=== PATIENT | male | born 1985 | race Caucasian/White ===

== ENCOUNTER 2016-08-21 14:55 | Emergency (ER) | payer OTHER ==
[2016-08-21] MEDS ORDERED: NORCO, ANEXSIA 5/325MG TABLET (HYDROcodone/ACETAMINOPHEN) As Ordered ONE (17:00)
[2016-08-21] MEDS ORDERED: ONDANSETRON 4 MG ORAL DISINTEGRATING TAB (S0181) As Ordered ONE (17:00)
[2016-08-21] MEDS ORDERED: IBUPROFEN 600 MG TAB As Ordered ONE (17:04)
--- NOTE | 2016-08-21 17:26 | REP ---
CT Head without contrast HISTORY: Head injury COMPARISON: None There is no intraparenchymal hemorrhage, acute infarct, mass or midline shift. The ventricular system is normal in appearance. There is no extra cerebral collection. There is no fracture. The visualized sinuses are clear. IMPRESSION: There is no intracranial lesion. Signed by Jose Arellano MD 08/21/2016 05:18 P
--- NOTE | 2016-08-21 18:50 | EDDOCDS ---
Nurse's Notes [facility] Name: Vitor Melendrez Age: 31 yrs Sex: Male : 1985 Arrival Date: 08/21/2016 Time: 14:55 Bed TR8 Private MD: Anuel Contreras Diagnosis: Contusion of other part of head-LEFT MANDIBLE Presentation: 08/21 15:17 Presenting complaint: Patient states: he was working on his truck last night and the kcs wrench slipped and he hit himself in the jaw so hard he passed out - since the pain is getting worse - very sore to touch. Adult Sepsis Screening: The patient does not have new or worsening altered mentation. Patient's respiratory rate is less than 22. Systolic blood pressure is greater than 100. Patient has a qSOFA score of 0- Negative Sepsis Screen. Suicide/Homicide risk assessment- the patient denies having any suicidal and/or homicidal ideations and does not present with any other emotional, behavioral or mental health complaints. 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 Transition of care: patient was not received from another setting of care. 15:17 Acuity: ABDIRAHMAN Level 4 kcs 15:17 Method Of Arrival: Walkin/Carried/Asstd kcs Triage Assessment: 15:19 General: Appears comfortable, well developed, well nourished, Behavior is cooperative, kcs pleasant. Pain: Location: left jaw Pain currently is 7 out of 10 on a pain scale. HIV screening NA for this visit Offered previously. Neurological: Level of Consciousness is awake, alert. Respiratory: Airway is patent Respiratory effort is even, unlabored, Respiratory pattern is regular, symmetrical. Derm: Skin is intact, is healthy with good turgor, Skin is dry, Skin is normal. Historical: - Allergies: No known drug Allergies; - Home Meds: 1. none - PMHx: Asthma; - PSHx: Gastric Bypass; Ankle Arthroscopy- Left; Cholecystectomy; oral surgery; - Social history: Smoking status: Patient states former smoker of tobacco. No barriers to communication noted, The patient speaks fluent Setswana. - Family history: No immediate family members are acutely ill. - : The pt / caregiver states he / she is not on anticoagulants. Home medication list is obtained from the patient, [employer] import data. - Exposure Risk Screening:: None identified. Screenin:48 Screening information is obtained from the patient. Fall risk: No risks identified. mb9 Assistance ADL's: requires no assistance with activities of daily living. Abuse/DV Screen: The patient / caregiver reports he/she is: not in a situation that causes fear, pain or injury. Nutritional screening: No deficits noted. Advance Directives: There is no active DNR order. home support is adequate. Assessment: 18:48 General: Appears in no apparent distress, Behavior is appropriate for age, cooperative. mb9 Pain:. Respiratory: Airway is patent Respiratory effort is even, unlabored. Vital Signs: 14:56 BP 142 / 86; Pulse 76; Resp 18 S; Temp 98.5(O); Pulse Ox 97% on R/A; Weight 113.4 kg gr2 (R); Height 6 ft. 0 in. (182.88 cm) (R); Pain 8/10; 18:42 BP 136 / 92; Pulse 63; Resp 18; Temp 99.4(TE); Pulse Ox 99% on R/A; Pain 6/10; ar3 14:56 Body Mass Index 33.91 (113.40 kg, 182.88 cm) gr2 Vitals: 14:56 Log In Time: August 21, 2016 at 14:56. gr2 ED Course: 14:56 Patient visited by Munira Mac. gr2 14:56 Anuel Contreras is Private Physician. gr2 14:56 Patient moved to Waiting gr2 14:58 Patient visited by Munira Mac. gr2 14:58 Patient moved to Pre RCE gr2 15:18 Triage Initiated kcs 16:40 Patient moved to Triage 3 mb9 16:41 Lucio Marshall [facility]-C [facility]. ck7 16:41 Amari Rios DO is Attending Physician. ck7 16:41 Patient visited by Lucio Marshall RPA-C. ck7 17:06 Patient moved to TR3 ar3 17:35 Patient visited by Lucio Marshall RPA-C. ck7 18:10 CT Head Without Contrast Returned. EDMS 18:13 Patient visited by Lucio Marshall RPA-C. ck7 18:13 Anuel Contreras is Referral Physician. ck7 18:28 Patient moved to [facility] 18:43 Patient visited by Rebecca Nieves PCA. ar3 18:47 Patient moved to TR8 mb9 18:48 The patient / caregiver is instructed regarding the plan of care and ED course. mb9 18:48 No IV's were initiated during this patient's visit. No procedures done that require mb9 assistance. Administered Medications: 17:16 Not Given (pt driving home): HYDROcodone-acetaminophen 5 mg-325 mg 1 tabs PO once mb9 17:16 Drug: Ondansetron ODT 4 mg [ondansetron 4 mg disintegrating tablet (1 tabs)] Route: PO; mb9 17:16 Drug: Ibuprofen 600 mg [ibuprofen 600 mg tablet (1 tabs)] Route: PO; mb9 Order Results: Radiology Order: CT Head Without Contrast Test: CT Head Without Contrast REASON FOR EXAMINATION: head injury, loc, r/o bleed; CT Head without contrast; ; HISTORY: Head injury; ; COMPARISON: None; ; There is no intraparenchymal hemorrhage, acute infarct, mass or midline shift.; The ventricular system is normal in appearance. There is no extra cerebral; collection. There is no fracture. The visualized sinuses are clear.; ; IMPRESSION: There is no intracranial lesion.; ; ; ; ; Signed by; Jose Arellano MD 08/21/2016 05:18 P; Outcome: 18:13 Discharge ordered by Provider. ck7 18:48 Discharge Assessment: Patient awake, alert and oriented x 3. No cognitive and/or mb9 functional deficits noted. Patient verbalized understanding of disposition instructions. patient administered narcotics - no. The following High Risk Discharge criteria are identified: None. Discharged to home ambulatory. Condition: good Condition: stable Condition: improved. Discharge instructions given to patient, Demonstrated understanding of instructions, medications, Pt was receptive of discharge instructions/ teaching. No special radiology studies were completed. Property :Personal belongings accompany Pt. 18:49 Patient left the ED. mb9 Signatures: Dispatcher [employer] EDMS Sera Quinn, Chan Samano RN, RN RN Rebecca Linares PCA COMMERCIAL PAINTER ar3 Lucio Marshall, KEERTHI-C RPA-Cck7 Munira Mac 2 Yoshi Alejandre RN RN mb9 MTDD
--- NOTE | 2016-08-21 18:50 | EDDOCDS ---
Physician Documentation [facility] Name: Vitor Melendrez Age: 31 yrs Sex: Male : 1985 Arrival Date: 08/21/2016 Time: 14:55 Bed TR8 Private MD: Anuel Contreras Disposition: 08/21/16 18:13 Discharged to Home/Self Care. Impression: Contusion of other part of head - LEFT MANDIBLE. - Condition is Stable. - Discharge Instructions: Contusion. - Prescriptions for Ibuprofen 600 mg Oral Tablet - take 1 tablet by ORAL route every 6 hours As needed take with food; 30 tablet. [place] 5- 325 mg Oral Tablet - take 1 tablet by ORAL route every 6 hours As needed MDD: 4 tabs; 6 tablet. ZOFRAN ODT 4 mg - dissolve 1 tablet by ORAL route 4 times per day As needed do not chew, do not swallow whole; 10 tablet. - Medication Reconciliation, Local Pharmacy Hours form. - Follow up: Anuel Contreras; When: 2 - 3 days; Reason: Recheck today's complaints, Continuance of care. - Problem is new. - Symptoms have improved. Historical: - Allergies: No known drug Allergies; - Home Meds: 1. none - PMHx: Asthma; - PSHx: Gastric Bypass; Ankle Arthroscopy- Left; Cholecystectomy; oral surgery; - Social history: Smoking status: Patient states former smoker of tobacco. No barriers to communication noted, The patient speaks fluent Slovak. - Family history: No immediate family members are acutely ill. - : The pt / caregiver states he / she is not on anticoagulants. Home medication list is obtained from the patient, [employer] import data. - Exposure Risk Screening:: None identified. Vital Signs: 08/21 14:56 BP 142 / 86; Pulse 76; Resp 18 S; Temp 98.5(O); Pulse Ox 97% on R/A; Weight 113.4 kg / gr2 250 lbs (R); Height 6 ft. 0 in. (182.88 cm) (R); Pain 8/10; 18:42 BP 136 / 92; Pulse 63; Resp 18; Temp 99.4(TE); Pulse Ox 99% on R/A; Pain 6/10; ar3 14:56 Body Mass Index 33.91 (113.40 kg, 182.88 cm) gr2 MDM: 16:58 HYDROcodone-acetaminophen 5 mg-325 mg 1 tabs PO once ordered. ck7 16:58 Ondansetron ODT Oral Disintegrating Tablet 4 mg PO once ordered. ck7 16:58 CT Head Without Contrast Ordered. EDMS 16:58 CT Maxilofacial W/out Contrast Ordered. EDMS 17:02 Ibuprofen 600 mg PO once ordered. ck7 18:48 Financial registration complete. gjb Administered Medications: 17:16 Not Given (pt driving home): HYDROcodone-acetaminophen 5 mg-325 mg 1 tabs PO once mb9 17:16 Drug: Ondansetron ODT 4 mg [ondansetron 4 mg disintegrating tablet (1 tabs)] Route: PO; mb9 17:16 Drug: Ibuprofen 600 mg [ibuprofen 600 mg tablet (1 tabs)] Route: PO; mb9 Signatures: Dispatcher [employer] Sera De Jesus RN RN kcs Lucio Marshall, RPA-C RPA-Cck7 Yoshi Alejandre RN RN mb9 Syl Bonilla MTDD
--- NOTE | 2016-08-21 20:54 | REP ---
MAXILLOFACIAL CT WITHOUT CONTRAST: HISTORY: Trauma. Minimal mucosal thickening is present in the right maxillary sinus. The remaining sinuses are clear. The ostiomeatal units are patent. The middle and inferior nasal turbinates are partially paradoxical. There is very minimal deviation of the nasal septum to the right. The cribriform plate, medial taylor of the orbits and optic canals are intact. The carotid canals form a segment of the posterolateral taylor of the sphenoid sinus. Periapical lucency is present involving the first and second premolar teeth of the right mandible. There is disruption of the overlying buccal cortex. This represents periodontal disease. There is no fracture. IMPRESSION: Minimal right maxillary sinus mucosal thickening. Signed by Jose Arellano MD 08/22/2016 08:18 A
--- NOTE | 2016-08-23 19:50 | EDDOCDS ---
Nurse's Notes [facility] Name: Vitor Melendrez Age: 31 yrs Sex: Male : 1985 Arrival Date: 08/21/2016 Time: 14:55 Bed TR8 Private MD: Anuel Contreras Diagnosis: Contusion of other part of head-LEFT MANDIBLE Presentation: 08/21 15:17 Presenting complaint: Patient states: he was working on his truck last night and the kcs wrench slipped and he hit himself in the jaw so hard he passed out - since the pain is getting worse - very sore to touch. Adult Sepsis Screening: The patient does not have new or worsening altered mentation. Patient's respiratory rate is less than 22. Systolic blood pressure is greater than 100. Patient has a qSOFA score of 0- Negative Sepsis Screen. Suicide/Homicide risk assessment- the patient denies having any suicidal and/or homicidal ideations and does not present with any other emotional, behavioral or mental health complaints. Status: Patient is not a web services architect or dependent. Transition of care: patient was not received from another setting of care. 15:17 Acuity: ABDIRAHMAN Level 4 kcs 15:17 Method Of Arrival: Walkin/Carried/Asstd kcs Triage Assessment: 15:19 General: Appears comfortable, well developed, well nourished, Behavior is cooperative, kcs pleasant. Pain: Location: left jaw Pain currently is 7 out of 10 on a pain scale. HIV screening NA for this visit Offered previously. Neurological: Level of Consciousness is awake, alert. Respiratory: Airway is patent Respiratory effort is even, unlabored, Respiratory pattern is regular, symmetrical. Derm: Skin is intact, is healthy with good turgor, Skin is dry, Skin is normal. Historical: - Allergies: No known drug Allergies; - Home Meds: 1. none - PMHx: Asthma; - PSHx: Gastric Bypass; Ankle Arthroscopy- Left; Cholecystectomy; oral surgery; - Social history: Smoking status: Patient states former smoker of tobacco. No barriers to communication noted, The patient speaks fluent Turkmen. - Family history: No immediate family members are acutely ill. - : The pt / caregiver states he / she is not on anticoagulants. Home medication list is obtained from the patient, [employer] import data. - Exposure Risk Screening:: None identified. Screenin:48 Screening information is obtained from the patient. Fall risk: No risks identified. mb9 Assistance ADL's: requires no assistance with activities of daily living. Abuse/DV Screen: The patient / caregiver reports he/she is: not in a situation that causes fear, pain or injury. Nutritional screening: No deficits noted. Advance Directives: There is no active DNR order. home support is adequate. Assessment: 18:48 General: Appears in no apparent distress, Behavior is appropriate for age, cooperative. mb9 Pain:. Respiratory: Airway is patent Respiratory effort is even, unlabored. Vital Signs: 14:56 BP 142 / 86; Pulse 76; Resp 18 S; Temp 98.5(O); Pulse Ox 97% on R/A; Weight 113.4 kg gr2 (R); Height 6 ft. 0 in. (182.88 cm) (R); Pain 8/10; 18:42 BP 136 / 92; Pulse 63; Resp 18; Temp 99.4(TE); Pulse Ox 99% on R/A; Pain 6/10; ar3 14:56 Body Mass Index 33.91 (113.40 kg, 182.88 cm) gr2 Vitals: 14:56 Log In Time: August 21, 2016 at 14:56. gr2 ED Course: 14:56 Patient visited by Munira Mac. gr2 14:56 Anuel Contreras is Private Physician. gr2 14:56 Patient moved to Waiting gr2 14:58 Patient visited by Munira Mac. gr2 14:58 Patient moved to Pre RCE gr2 15:18 Triage Initiated kcs 16:40 Patient moved to Triage 3 mb9 16:41 [facility] Marshall [facility]C [facility] ck7 16:41 Amari Rios DO is Attending Physician. ck7 16:41 Patient visited by Lucio Marshall RPA-C. ck7 17:06 Patient moved to TR3 ar3 17:35 Patient visited by Lucio Marshall RPA-C. ck7 18:10 CT Head Without Contrast Returned. EDMS 18:13 Patient visited by Lucio Marshall RPA-C. ck7 18:13 Anuel Contreras is Referral Physician. ck7 18:28 Patient moved to PR2 / 26 bcj 18:43 Patient visited by Rebecca Nieves PCA. ar3 18:47 Patient moved to TR8 mb9 18:48 The patient / caregiver is instructed regarding the plan of care and ED course. mb9 18:48 No IV's were initiated during this patient's visit. No procedures done that require mb9 assistance. 20:56 [facility] [place] was scanned into [employer] and attached to record. gjb 21:33 CT Maxilofacial W/out Contrast Returned. EDMS 08/22 12:42 T-Sheet-- Draft Copy was scanned into [employer] and attached to record. gb Administered Medications: 08/21 17:16 Not Given (pt driving home): HYDROcodone-acetaminophen 5 mg-325 mg 1 tabs PO once mb9 17:16 Drug: Ondansetron ODT 4 mg [ondansetron 4 mg disintegrating tablet (1 tabs)] Route: PO; mb9 17:16 Drug: Ibuprofen 600 mg [ibuprofen 600 mg tablet (1 tabs)] Route: PO; mb9 Order Results: Radiology Order: CT Head Without Contrast Test: CT Head Without Contrast REASON FOR EXAMINATION: head injury, loc, r/o bleed; CT Head without contrast; ; HISTORY: Head injury; ; COMPARISON: None; ; There is no intraparenchymal hemorrhage, acute infarct, mass or midline shift.; The ventricular system is normal in appearance. There is no extra cerebral; collection. There is no fracture. The visualized sinuses are clear.; ; IMPRESSION: There is no intracranial lesion.; ; ; ; ; Signed by; Jose Arellano MD 08/21/2016 05:18 P; Radiology Order: CT Maxilofacial W/out Contrast Test: CT Maxilofacial W/out Contrast REASON FOR EXAMINATION: r/o maxilla and mandible fracture; MAXILLOFACIAL CT WITHOUT CONTRAST:; ; HISTORY: Trauma.; ; Minimal mucosal thickening is present in the right maxillary sinus. The remaining; sinuses are clear. The ostiomeatal units are patent. The middle and inferior; nasal turbinates are partially paradoxical. There is very minimal deviation of; the nasal septum to the right. The cribriform plate, medial taylor of the orbits; and optic canals are intact. The carotid canals form a segment of the; posterolateral taylor of the sphenoid sinus. Periapical lucency is present; involving the first and second premolar teeth of the right mandible. There is; disruption of the overlying buccal cortex. This represents periodontal disease.; There is no fracture.; ; IMPRESSION:; ; Minimal right maxillary sinus mucosal thickening.; ; ; Signed by; Jose Arellano MD 08/22/2016 08:18 A; Outcome: 18:13 Discharge ordered by Provider. ck7 18:48 Discharge Assessment: Patient awake, alert and oriented x 3. No cognitive and/or mb9 functional deficits noted. Patient verbalized understanding of disposition instructions. patient administered narcotics - no. The following High Risk Discharge criteria are identified: None. Discharged to home ambulatory. Condition: good Condition: stable Condition: improved. Discharge instructions given to patient, Demonstrated understanding of instructions, medications, Pt was receptive of discharge instructions/ teaching. No special radiology studies were completed. Property :Personal belongings accompany Pt. 18:49 Patient left the ED. mb9 Signatures: Dispatcher [employer] EDMS Sera Quinn, RN RN Chan Villa RN RN bcj Heather Bains, Reg Reg gb Rebecca Nieves, FIRE OFFICIAL FIRE OFFICIAL ar3 Lucio Marshall, RPA-C RPA-Cck7 Munira Mac gr2 Yoshi AlejandreRN RN mb9 Syl Bonilla Chart Complete MTDD
--- NOTE | 2016-08-23 19:50 | EDDOCDS ---
Physician Documentation [facility] Name: Vitor Melendrez Age: 31 yrs Sex: Male : 1985 Arrival Date: 08/21/2016 Time: 14:55 Bed TR8 Private MD: Anuel Contreras Disposition: 08/21/16 18:13 Discharged to Home/Self Care. Impression: Contusion of other part of head - LEFT MANDIBLE. - Condition is Stable. - Discharge Instructions: Contusion. - Prescriptions for Ibuprofen 600 mg Oral Tablet - take 1 tablet by ORAL route every 6 hours As needed take with food; 30 tablet. [place] 5- 325 mg Oral Tablet - take 1 tablet by ORAL route every 6 hours As needed MDD: 4 tabs; 6 tablet. ZOFRAN ODT 4 mg - dissolve 1 tablet by ORAL route 4 times per day As needed do not chew, do not swallow whole; 10 tablet. - Medication Reconciliation, Local Pharmacy Hours form. - Follow up: Anuel Contreras; When: 2 - 3 days; Reason: Recheck today's complaints, Continuance of care. - Problem is new. - Symptoms have improved. Historical: - Allergies: No known drug Allergies; - Home Meds: 1. none - PMHx: Asthma; - PSHx: Gastric Bypass; Ankle Arthroscopy- Left; Cholecystectomy; oral surgery; - Social history: Smoking status: Patient states former smoker of tobacco. No barriers to communication noted, The patient speaks fluent Portuguese. - Family history: No immediate family members are acutely ill. - : The pt / caregiver states he / she is not on anticoagulants. Home medication list is obtained from the patient, [employer] import data. - Exposure Risk Screening:: None identified. Vital Signs: 08/21 14:56 BP 142 / 86; Pulse 76; Resp 18 S; Temp 98.5(O); Pulse Ox 97% on R/A; Weight 113.4 kg / gr2 250 lbs (R); Height 6 ft. 0 in. (182.88 cm) (R); Pain 8/10; 18:42 BP 136 / 92; Pulse 63; Resp 18; Temp 99.4(TE); Pulse Ox 99% on R/A; Pain 6/10; ar3 14:56 Body Mass Index 33.91 (113.40 kg, 182.88 cm) gr2 MDM: 16:58 HYDROcodone-acetaminophen 5 mg-325 mg 1 tabs PO once ordered. ck7 16:58 Ondansetron ODT Oral Disintegrating Tablet 4 mg PO once ordered. ck7 16:58 CT Head Without Contrast Ordered. EDMS 16:58 CT Maxilofacial W/out Contrast Ordered. EDMS 17:02 Ibuprofen 600 mg PO once ordered. ck7 18:48 Financial registration complete. gjb 20:56 [facility] Payment Agreement was scanned into [employer] and attached to record. gjb 08/22 12:42 T-Sheet-- Draft Copy was scanned into [employer] and attached to record. gb Administered Medications: 08/21 17:16 Not Given (pt driving home): HYDROcodone-acetaminophen 5 mg-325 mg 1 tabs PO once mb9 17:16 Drug: Ondansetron ODT 4 mg [ondansetron 4 mg disintegrating tablet (1 tabs)] Route: PO; mb9 17:16 Drug: Ibuprofen 600 mg [ibuprofen 600 mg tablet (1 tabs)] Route: PO; mb9 Signatures: Dispatcher [employer] EDMS Sera Quinn RN RN kcs Heather Bains, Reg Reg gb Lucio Marshall, RPA-C RPA-Cck7 Yoshi Alejandre RN RN mb9 Syl Bonilla The chart was reviewed and I authenticate all verbal orders and agree with the evaluation and treatment provided.Attachments: 20:56 [facility] Payment Agreement [facility] 08/22 12:42 T-Sheet-- Draft Copy gb Chart Complete MTDD
--- NOTE | 2016-08-23 19:50 | EDDOCDS ---
Physician Documentation [facility] Name: Vitor Melendrez Age: 31 yrs Sex: Male : 1985 Arrival Date: 08/21/2016 Time: 14:55 Bed TR8 Private MD: Anuel Contreras Disposition: 08/21/16 18:13 Discharged to Home/Self Care. Impression: Contusion of other part of head - LEFT MANDIBLE. - Condition is Stable. - Discharge Instructions: Contusion. - Prescriptions for Ibuprofen 600 mg Oral Tablet - take 1 tablet by ORAL route every 6 hours As needed take with food; 30 tablet. [place] 5- 325 mg Oral Tablet - take 1 tablet by ORAL route every 6 hours As needed MDD: 4 tabs; 6 tablet. ZOFRAN ODT 4 mg - dissolve 1 tablet by ORAL route 4 times per day As needed do not chew, do not swallow whole; 10 tablet. - Medication Reconciliation, Local Pharmacy Hours form. - Follow up: Anuel Contreras; When: 2 - 3 days; Reason: Recheck today's complaints, Continuance of care. - Problem is new. - Symptoms have improved. Historical: - Allergies: No known drug Allergies; - Home Meds: 1. none - PMHx: Asthma; - PSHx: Gastric Bypass; Ankle Arthroscopy- Left; Cholecystectomy; oral surgery; - Social history: Smoking status: Patient states former smoker of tobacco. No barriers to communication noted, The patient speaks fluent Greek. - Family history: No immediate family members are acutely ill. - : The pt / caregiver states he / she is not on anticoagulants. Home medication list is obtained from the patient, [employer] import data. - Exposure Risk Screening:: None identified. Vital Signs: 08/21 14:56 BP 142 / 86; Pulse 76; Resp 18 S; Temp 98.5(O); Pulse Ox 97% on R/A; Weight 113.4 kg / gr2 250 lbs (R); Height 6 ft. 0 in. (182.88 cm) (R); Pain 8/10; 18:42 BP 136 / 92; Pulse 63; Resp 18; Temp 99.4(TE); Pulse Ox 99% on R/A; Pain 6/10; ar3 14:56 Body Mass Index 33.91 (113.40 kg, 182.88 cm) gr2 MDM: 16:58 HYDROcodone-acetaminophen 5 mg-325 mg 1 tabs PO once ordered. ck7 16:58 Ondansetron ODT Oral Disintegrating Tablet 4 mg PO once ordered. ck7 16:58 CT Head Without Contrast Ordered. EDMS 16:58 CT Maxilofacial W/out Contrast Ordered. EDMS 17:02 Ibuprofen 600 mg PO once ordered. ck7 18:48 Financial registration complete. gjb 20:56 [facility] Payment Agreement was scanned into [employer] and attached to record. gjb 08/22 12:42 T-Sheet-- Draft Copy was scanned into [employer] and attached to record. gb Administered Medications: 08/21 17:16 Not Given (pt driving home): HYDROcodone-acetaminophen 5 mg-325 mg 1 tabs PO once mb9 17:16 Drug: Ondansetron ODT 4 mg [ondansetron 4 mg disintegrating tablet (1 tabs)] Route: PO; mb9 17:16 Drug: Ibuprofen 600 mg [ibuprofen 600 mg tablet (1 tabs)] Route: PO; mb9 Signatures: Dispatcher [employer] EDMS Sera Quinn RN RN kcs Heather Bains, Reg Reg gb Lucio Marshall, RPA-C RPA-Cck7 Yoshi Alejandre RN RN mb9 Syl Bonilla The chart was reviewed and I authenticate all verbal orders and agree with the evaluation and treatment provided.Attachments: 20:56 [facility] Payment Agreement [facility] 08/22 12:42 T-Sheet-- Draft Copy gb Chart Complete MTDD
== END 2016-08-21 18:49 | disposition home or self-care (01) ==
LOC: M ED 14:55
DX: S00.83XA Contusion of other part of head, initial encounter (principal); W22.8XXA Striking against or struck by other objects, initial encounter; Y92.019 Unspecified place in single-family (private) house as the place of occurrence of the external cause; Y93.89 Activity, other specified; Y99.8 Other external cause status; J45.909 Unspecified asthma, uncomplicated; Z87.891 Personal history of nicotine dependence; Z98.84 Bariatric surgery status

== ENCOUNTER → 2016-08-28 | Outpatient (REF) | payer OTHER ==
[2016-08-29 11:22] LABS: BASO % 0.9 % (0.0-1.0); EOS # 0.2 K/mm3 (0.0-0.50); EOS % 3.4 % (0.0-3.0); LARGE UNSTAINED CELL # 0.1 K/mm3 (0.0-0.4); LARGE UNSTAINED CELL % 1.8 % (0.0-4.0); LYMPH # 1.8 K/mm3 (1.5-4.5); LYMPH % 32.4 % (24.0-44.0); MEAN CORPUSCULAR HEMOGLOBIN 30.8 pg (27.0-33.0); MEAN CORPUSCULAR HGB CONC 36.3 g/dl (32.0-36.5); MEAN CORPUSCULAR VOLUME 84.8 fl (80.0-96.0); MONO # 0.3 K/mm3 (0.0-0.8); NEUTROPHILS # 3.1 K/mm3 (1.8-7.7); NEUTROPHILS % 56.5 % (36.0-66.0); PLATELET COUNT, AUTOMATED 231 k/mm3 (150-450); RED CELL DISTRIBUTION WIDTH 11.9 % (11.5-14.5); WHITE BLOOD COUNT 5.5 K/mm3 (4.0-10.0)
[2016-08-29 11:49] LABS: ALBUMIN 4.2 GM/DL (3.2-5.2); ALBUMIN/GLOBULIN RATIO 1.45 (1.00-1.93); ALKALINE PHOSPHATASE 148 U/L (45-117); ALT/SGPT 26 U/L (12-78); ANION GAP 7 MEQ/L (8-16); AST/SGOT 26 U/L (15-37); BILIRUBIN,TOTAL 0.8 MG/DL (0.2-1.0); BLOOD UREA NITROGEN 8 MG/DL (7-18); CALCIUM LEVEL 8.8 MG/DL (8.5-10.1); CARBON DIOXIDE LEVEL 30 MEQ/L (21-32); CHLORIDE LEVEL 105 MEQ/L (98-107); CREATININE FOR GFR 0.63 MG/DL (0.70-1.30); GLOMERULAR FILTRATION RATE > 60.0 (>60); GLUCOSE, FASTING 85 MG/DL (70-105); MAGNESIUM LEVEL 2.4 MG/DL (1.8-2.4); POTASSIUM SERUM 3.9 MEQ/L (3.5-5.1); SODIUM LEVEL 142 MEQ/L (136-145); TOTAL PROTEIN 7.1 GM/DL (6.4-8.2)
[2016-08-29 11:54] LABS: FOLATE 3.9 NG/ML (>5.4); VITAMIN B12 LEVEL 315 PG/ML (247-911)
== END ==
LOC: M SFHCCLAY 15:36
PROVIDERS: ATTEND Family Medicine
DX: Z98.890 Other specified postprocedural states (principal); D50.9 Iron deficiency anemia, unspecified; E55.9 Vitamin D deficiency, unspecified

== ENCOUNTER 2016-09-27 20:39 | Emergency (ER) | payer OTHER ==
[2016-09-27] MEDS ORDERED: ACETAMINOPHEN 325 MG TAB As Ordered ONE (21:36)
--- NOTE | 2016-09-27 22:42 | EDDOCDS ---
Physician Documentation [facility] Name: Vitor Melendrez Age: 31 yrs Sex: Male : 1985 Arrival Date: 09/27/2016 Time: 20:39 Bed TR2 Private MD: Anuel Contreras Disposition: 09/27/16 22:35 Discharged to Home/Self Care. Impression: Strain of muscle, fascia and tendon of lower back. - Condition is Stable. - Discharge Instructions: Back Pain, Adult, Muscle Strain. - Prescriptions for Robaxin 500 mg Oral Tablet - take 2 tablet by ORAL route every 6 hours As needed; 40 tablet. - Medication Reconciliation, Local Pharmacy Hours form. - Follow up: Anuel Contreras; When: Call to arrange an appointment; Reason: Recheck today's complaints, Continuance of care. - Problem is new. - Symptoms are unchanged. Historical: - Allergies: no known allergies; - Home Meds: 1. folic acid 400 mcg Oral tab 1 tab once daily - PMHx: none; - PSHx: Gastric Bypass; Ankle Arthroscopy- Left; Cholecystectomy; oral surgery; - Social history: Smoking status: Patient states former smoker of tobacco. No barriers to communication noted, The patient speaks fluent [place]. - Family history: Not pertinent. - : The pt / caregiver states he / she is not on anticoagulants. Home medication list is obtained from the patient. - Exposure Risk Screening:: None identified. Vital Signs: 09/27 20:41 BP 142 / 92; Pulse 70; Resp 18; Temp 97.4(O); Pulse Ox 98% on R/A; Weight 108.86 kg / gr2 240 lbs (R); Height 6 ft. 0 in. (182.88 cm) (R); Pain 8/10; 22:37 BP 128 / 88; Pulse 70; Resp 18; Temp 98.2(TE); Pulse Ox 98% on R/A; Pain 8/10; mdr 20:41 Body Mass Index 32.55 (108.86 kg, 182.88 cm) gr2 MDM: 21:35 Acetaminophen Tablet 975 mg PO once ordered. mo1 21:36 Spine. Lumbosacral, Complete Ordered. EDMS 21:42 Financial registration complete. [facility] 21:43 [facility] Payment Agreement was scanned into [email or web address] and attached to record. [email or web address] Administered Medications: 21:38 Drug: Acetaminophen 975 mg [acetaminophen 325 mg tablet (3 tabs)] Route: PO; jo3 Signatures: Dispatcher [employer] Bhanu Newman RN RN cz Hiral Dumont RN RN rs3 Yoshi Anton PA PA Dian España, Reg Reg ks16 Sheree Ford RN jo3 The chart was reviewed and I authenticate all verbal orders and agree with the evaluation and treatment provided.Attachments: 21:43 [facility] Payment Agreement [email or web address] MTDD
--- NOTE | 2016-09-27 22:42 | EDDOCDS ---
Nurse's Notes [facility] Name: Vitor Melendrez Age: 31 yrs Sex: Male : 1985 Arrival Date: 09/27/2016 Time: 20:39 Bed TR2 Private MD: Anuel Contreras Diagnosis: Strain of muscle, fascia and tendon of lower back Presentation: 09/27 20:47 Presenting complaint: Patient states: lower back pain since this afternoon. worse with rs3 movement and activity. denies radiation, numbness, tingling. no known injury. Acute neurological deficits are not present. Mechanism of Injury: No Mechanism of Injury. Adult Sepsis Screening: The patient does not have new or worsening altered mentation. Patient's respiratory rate is less than 22. Systolic blood pressure is greater than 100. Patient has a qSOFA score of 0- Negative Sepsis Screen. Suicide/Homicide risk assessment- the patient denies having any suicidal and/or homicidal ideations and does not present with any other emotional, behavioral or mental health complaints. Status: Patient is not a director of community services or dependent. Transition of care: patient was not received from another setting of care. 20:47 Acuity: ABDIRAHMAN Level 4 rs3 20:47 Method Of Arrival: Walkin/Carried/Asstd rs3 Triage Assessment: 20:50 General: Appears in no apparent distress. Pain: Location: lumbar area. HIV screening NA rs3 for this visit Offered previously. Musculoskeletal: Reports Pain is 8 out of 10 on a pain scale. Historical: - Allergies: no known allergies; - Home Meds: 1. folic acid 400 mcg Oral tab 1 tab once daily - PMHx: none; - PSHx: Gastric Bypass; Ankle Arthroscopy- Left; Cholecystectomy; oral surgery; - Social history: Smoking status: Patient states former smoker of tobacco. No barriers to communication noted, The patient speaks fluent Rwandan. - Family history: Not pertinent. - : The pt / caregiver states he / she is not on anticoagulants. Home medication list is obtained from the patient. - Exposure Risk Screening:: None identified. Screenin:40 Screening information is obtained from the patient. Fall risk: No risks identified. cz Assistance ADL's: requires no assistance with activities of daily living. Abuse/DV Screen: The patient / caregiver reports he/she is: not in a situation that causes fear, pain or injury. Nutritional screening: No deficits noted. Advance Directives: Currently, there is no health care proxy. There is no active DNR order. There is no living will. There is no Power of Photonics Engineer. Advance directive information has not previously been placed in an [facility] medical record. Further advance directive information is declined. home support is adequate. Assessment: 22:40 Reassessment: Patient appears in no apparent distress at this time. Patient states cz symptoms have improved. Vital Signs: 20:41 BP 142 / 92; Pulse 70; Resp 18; Temp 97.4(O); Pulse Ox 98% on R/A; Weight 108.86 kg gr2 (R); Height 6 ft. 0 in. (182.88 cm) (R); Pain 8/10; 22:37 BP 128 / 88; Pulse 70; Resp 18; Temp 98.2(TE); Pulse Ox 98% on R/A; Pain 8/10; mdr 20:41 Body Mass Index 32.55 (108.86 kg, 182.88 cm) gr2 Vitals: 20:41 Log In Time: September 27, 2016 at 20:41. gr2 ED Course: 20:40 Patient visited by Munira Mac. gr2 20:40 Patient moved to Waiting gr2 20:41 Anuel Contreras is Private Physician. gr2 20:43 Patient visited by Munira Mac. gr2 20:43 Patient moved to Pre RCE gr2 20:49 Triage Initiated rs3 21:27 Patient moved to Triage 2 cz 21:28 Yoshi Anton PA is PHCP. mo1 21:28 Arnoldo Finch DO is Attending Physician. mo1 21:33 Patient visited by Yoshi Anton PA. mo1 21:38 Patient moved to TR2 jo3 21:43 [facility] Payment Agreement was scanned into [employer] and attached to record. [email or web address] 22:27 Patient moved to PR1 / 25 mdr 22:35 Anuel Contreras is Referral Physician. mo1 22:38 Patient visited by Sundeep Cummings PCA. mdr 22:40 Patient moved to TR2 cz 22:40 The patient / caregiver is instructed regarding the plan of care and ED course. cz 22:40 No IV's were initiated during this patient's visit. No procedures done that require cz assistance. Administered Medications: 21:38 Drug: Acetaminophen 975 mg [acetaminophen 325 mg tablet (3 tabs)] Route: PO; jo3 Order Results: There are currently no results for this order. Outcome: 22:35 Discharge ordered by Provider. mo1 22:40 Discharge Assessment: Patient awake, alert and oriented x 3. No cognitive and/or cz functional deficits noted. Patient verbalized understanding of disposition instructions. patient administered narcotics - no. The following High Risk Discharge criteria are identified: None. Discharged to home ambulatory. Condition: stable. Discharge instructions given to patient, Instructed on discharge instructions, follow up and referral plans. medication usage, Demonstrated understanding of instructions, medications, Pt was receptive of discharge instructions/ teaching. Prescriptions given X 1. No special radiology studies were completed. Property :Personal belongings accompany Pt. 22:41 Patient left the ED. cz Signatures: Bhanu Jay RN RN Sheree Gregg RN RN jo3 Hiral DumontRN RN rs3 Munira Mac gr2 Yoshi Anton PA PA mo1 Sundeep Cummings, FIRE ALARM INSTALLER FIRE ALARM INSTALLER Dian Russ, Reg Reg [email or web address] MTDD
--- NOTE | 2016-09-28 01:37 | REP ---
Clinical: Trauma. Technique: AP, lateral, bilateral oblique, and coned-down views. Findings: Alignment and lordosis is maintained. The vertebral bodies including transverse process and spinous processes are intact and normal. There is no evidence for acute fracture / compression injury or subluxation. No evidence for spondylolysis or spondylolisthesis. No significant degenerative change is noted. Impression: Normal lumbosacral spine radiograph series. Signed by Natanael Mosher MD 09/28/2016 01:28 A
--- NOTE | 2016-09-29 23:43 | EDDOCDS ---
Physician Documentation [facility] Name: Vitor Melendrez Age: 31 yrs Sex: Male : 1985 Arrival Date: 09/27/2016 Time: 20:39 Bed TR2 Private MD: Anuel Contreras Disposition: 09/27/16 22:35 Discharged to Home/Self Care. Impression: Strain of muscle, fascia and tendon of lower back. - Condition is Stable. - Discharge Instructions: Back Pain, Adult, Muscle Strain. - Prescriptions for Robaxin 500 mg Oral Tablet - take 2 tablet by ORAL route every 6 hours As needed; 40 tablet. - Medication Reconciliation, Local Pharmacy Hours form. - Follow up: Anuel Contreras; When: Call to arrange an appointment; Reason: Recheck today's complaints, Continuance of care. - Problem is new. - Symptoms are unchanged. Historical: - Allergies: no known allergies; - Home Meds: 1. folic acid 400 mcg Oral tab 1 tab once daily - PMHx: none; - PSHx: Gastric Bypass; Ankle Arthroscopy- Left; Cholecystectomy; oral surgery; - Social history: Smoking status: Patient states former smoker of tobacco. No barriers to communication noted, The patient speaks fluent [place]egalese. - Family history: Not pertinent. - : The pt / caregiver states he / she is not on anticoagulants. Home medication list is obtained from the patient. - Exposure Risk Screening:: None identified. Vital Signs: 09/27 20:41 BP 142 / 92; Pulse 70; Resp 18; Temp 97.4(O); Pulse Ox 98% on R/A; Weight 108.86 kg / gr2 240 lbs (R); Height 6 ft. 0 in. (182.88 cm) (R); Pain 8/10; 22:37 BP 128 / 88; Pulse 70; Resp 18; Temp 98.2(TE); Pulse Ox 98% on R/A; Pain 8/10; mdr 20:41 Body Mass Index 32.55 (108.86 kg, 182.88 cm) gr2 MDM: 21:35 Acetaminophen Tablet 975 mg PO once ordered. mo1 21:36 Spine. Lumbosacral, Complete Ordered. EDMS 21:42 Financial registration complete. [facility] 21:43 [facility] Payment Agreement was scanned into [employer] and attached to record. [email or web address] 09/28 12:25 T-Sheet-- Draft Copy was scanned into [employer] and attached to record. gb Administered Medications: 09/27 21:38 Drug: Acetaminophen 975 mg [acetaminophen 325 mg tablet (3 tabs)] Route: PO; jo3 Signatures: Dispatcher [employer] EDBhanu Hughes RN RN cz Heather Bains, Reg Reg gb Hiral Dumont RN RN rs3 Yoshi Anton PA PA mo1 Dian Ochoa, Reg Reg ks16 Sheree Ford RN jo3 The chart was reviewed and I authenticate all verbal orders and agree with the evaluation and treatment provided.Attachments: 21:43 [facility] Payment Agreement [email or web address] 09/28 12:25 T-Sheet-- Draft Copy gb Chart Complete MTDD
--- NOTE | 2016-09-29 23:43 | EDDOCDS ---
Physician Documentation [facility] Name: Vitor Melendrez Age: 31 yrs Sex: Male : 1985 Arrival Date: 09/27/2016 Time: 20:39 Bed TR2 Private MD: Anuel Contreras Disposition: 09/27/16 22:35 Discharged to Home/Self Care. Impression: Strain of muscle, fascia and tendon of lower back. - Condition is Stable. - Discharge Instructions: Back Pain, Adult, Muscle Strain. - Prescriptions for Robaxin 500 mg Oral Tablet - take 2 tablet by ORAL route every 6 hours As needed; 40 tablet. - Medication Reconciliation, Local Pharmacy Hours form. - Follow up: Anuel Contreras; When: Call to arrange an appointment; Reason: Recheck today's complaints, Continuance of care. - Problem is new. - Symptoms are unchanged. Historical: - Allergies: no known allergies; - Home Meds: 1. folic acid 400 mcg Oral tab 1 tab once daily - PMHx: none; - PSHx: Gastric Bypass; Ankle Arthroscopy- Left; Cholecystectomy; oral surgery; - Social history: Smoking status: Patient states former smoker of tobacco. No barriers to communication noted, The patient speaks fluent Welsh. - Family history: Not pertinent. - : The pt / caregiver states he / she is not on anticoagulants. Home medication list is obtained from the patient. - Exposure Risk Screening:: None identified. Vital Signs: 09/27 20:41 BP 142 / 92; Pulse 70; Resp 18; Temp 97.4(O); Pulse Ox 98% on R/A; Weight 108.86 kg / gr2 240 lbs (R); Height 6 ft. 0 in. (182.88 cm) (R); Pain 8/10; 22:37 BP 128 / 88; Pulse 70; Resp 18; Temp 98.2(TE); Pulse Ox 98% on R/A; Pain 8/10; mdr 20:41 Body Mass Index 32.55 (108.86 kg, 182.88 cm) gr2 MDM: 21:35 Acetaminophen Tablet 975 mg PO once ordered. mo1 21:36 Spine. Lumbosacral, Complete Ordered. EDMS 21:42 Financial registration complete. [facility] 21:43 [facility] Payment Agreement was scanned into [employer] and attached to record. [email or web address] 09/28 12:25 T-Sheet-- Draft Copy was scanned into [email or web address] and attached to record. gb Administered Medications: 09/27 21:38 Drug: Acetaminophen 975 mg [acetaminophen 325 mg tablet (3 tabs)] Route: PO; jo3 Signatures: Dispatcher [employer] EDBhanu Hughes RN RN cz Heather Bains, Reg Reg gb Hiral Dumont RN RN rs3 Yoshi Anton PA PA mo1 Dian Ochoa, Reg Reg ks16 Sheree Ford RN jo3 The chart was reviewed and I authenticate all verbal orders and agree with the evaluation and treatment provided.Attachments: 21:43 [facility] Payment Agreement [email or web address] 09/28 12:25 T-Sheet-- Draft Copy gb Chart Complete MTDD
--- NOTE | 2016-09-29 23:43 | EDDOCDS ---
Nurse's Notes [facility] Name: Vitor Melendrez Age: 31 yrs Sex: Male : 1985 Arrival Date: 09/27/2016 Time: 20:39 Bed TR2 Private MD: Anuel Contreras Diagnosis: Strain of muscle, fascia and tendon of lower back Presentation: 09/27 20:47 Presenting complaint: Patient states: lower back pain since this afternoon. worse with rs3 movement and activity. denies radiation, numbness, tingling. no known injury. Acute neurological deficits are not present. Mechanism of Injury: No Mechanism of Injury. Adult Sepsis Screening: The patient does not have new or worsening altered mentation. Patient's respiratory rate is less than 22. Systolic blood pressure is greater than 100. Patient has a qSOFA score of 0- Negative Sepsis Screen. Suicide/Homicide risk assessment- the patient denies having any suicidal and/or homicidal ideations and does not present with any other emotional, behavioral or mental health complaints. Status: Patient is not a furniture servicer or dependent. Transition of care: patient was not received from another setting of care. 20:47 Acuity: ABDIRAHMAN Level 4 rs3 20:47 Method Of Arrival: Walkin/Carried/Asstd rs3 Triage Assessment: 20:50 General: Appears in no apparent distress. Pain: Location: lumbar area. HIV screening NA rs3 for this visit Offered previously. Musculoskeletal: Reports Pain is 8 out of 10 on a pain scale. Historical: - Allergies: no known allergies; - Home Meds: 1. folic acid 400 mcg Oral tab 1 tab once daily - PMHx: none; - PSHx: Gastric Bypass; Ankle Arthroscopy- Left; Cholecystectomy; oral surgery; - Social history: Smoking status: Patient states former smoker of tobacco. No barriers to communication noted, The patient speaks fluent [place] Islander. - Family history: Not pertinent. - : The pt / caregiver states he / she is not on anticoagulants. Home medication list is obtained from the patient. - Exposure Risk Screening:: None identified. Screenin:40 Screening information is obtained from the patient. Fall risk: No risks identified. cz Assistance ADL's: requires no assistance with activities of daily living. Abuse/DV Screen: The patient / caregiver reports he/she is: not in a situation that causes fear, pain or injury. Nutritional screening: No deficits noted. Advance Directives: Currently, there is no health care proxy. There is no active DNR order. There is no living will. There is no Power of Hydraulic Controls Technician. Advance directive information has not previously been placed in an [facility] medical record. Further advance directive information is declined. home support is adequate. Assessment: 22:40 Reassessment: Patient appears in no apparent distress at this time. Patient states cz symptoms have improved. Vital Signs: 20:41 BP 142 / 92; Pulse 70; Resp 18; Temp 97.4(O); Pulse Ox 98% on R/A; Weight 108.86 kg gr2 (R); Height 6 ft. 0 in. (182.88 cm) (R); Pain 8/10; 22:37 BP 128 / 88; Pulse 70; Resp 18; Temp 98.2(TE); Pulse Ox 98% on R/A; Pain 8/10; mdr 20:41 Body Mass Index 32.55 (108.86 kg, 182.88 cm) gr2 Vitals: 20:41 Log In Time: September 27, 2016 at 20:41. gr2 ED Course: 20:40 Patient visited by Munira Mac. gr2 20:40 Patient moved to Waiting gr2 20:41 Anuel Contreras is Private Physician. gr2 20:43 Patient visited by Munira Mac. gr2 20:43 Patient moved to Pre RCE gr2 20:49 Triage Initiated rs3 21:27 Patient moved to Triage 2 cz 21:28 Yoshi Anton PA is PHCP. mo1 21:28 Arnoldo Finch DO is Attending Physician. mo1 21:33 Patient visited by Yoshi Anton PA. mo1 21:38 Patient moved to TR2 jo3 21:43 [facility] Payment Agreement was scanned into [employer] and attached to record. ks16 22:27 Patient moved to PR1 / 25 mdr 22:35 Anuel Contreras is Referral Physician. mo1 22:38 Patient visited by Sundeep Cummings PCA. mdr 22:40 Patient moved to TR2 cz 22:40 The patient / caregiver is instructed regarding the plan of care and ED course. cz 22:40 No IV's were initiated during this patient's visit. No procedures done that require cz assistance. 09/28 01:56 Spine. Lumbosacral, Complete Returned. EDLA 12:25 T-Sheet-- Draft Copy was scanned into [employer] and attached to record. gb Administered Medications: 09/27 21:38 Drug: Acetaminophen 975 mg [acetaminophen 325 mg tablet (3 tabs)] Route: PO; jo3 Order Results: Radiology Order: Spine. Lumbosacral, Complete Test: Spine. Lumbosacral, Complete REASON FOR EXAMINATION: Trauma; Clinical: Trauma.; ; Technique: AP, lateral, bilateral oblique, and coned-down views.; ; Findings: Alignment and lordosis is maintained. The vertebral bodies including; transverse process and spinous processes are intact and normal. There is no; evidence for acute fracture / compression injury or subluxation. No evidence for; spondylolysis or spondylolisthesis. No significant degenerative change is; noted.; ; Impression:; Normal lumbosacral spine radiograph series.; ; ; Signed by; Natanael Mosher MD 09/28/2016 01:28 A; Outcome: 22:35 Discharge ordered by Provider. mo1 22:40 Discharge Assessment: Patient awake, alert and oriented x 3. No cognitive and/or cz functional deficits noted. Patient verbalized understanding of disposition instructions. patient administered narcotics - no. The following High Risk Discharge criteria are identified: None. Discharged to home ambulatory. Condition: stable. Discharge instructions given to patient, Instructed on discharge instructions, follow up and referral plans. medication usage, Demonstrated understanding of instructions, medications, Pt was receptive of discharge instructions/ teaching. Prescriptions given X 1. No special radiology studies were completed. Property :Personal belongings accompany Pt. 22:41 Patient left the ED. cz Signatures: Dispatcher [facility] EDLA Bhanu Jay RN RN cz Barnhardt, Gloria, Reg Reg gb Sheree Ford RN RN [email or web address] Hiral DumontRN RN rs3 Munira Mac gr2 Yoshi Anton PA PA mo1 Sundeep Cummings, RECEPTION INTERVIEWER RECEPTION INTERVIEWER Dian Russ, Reg Reg [email or web address] Chart Complete MTDD
== END 2016-09-27 22:41 | disposition home or self-care (01) ==
LOC: M ED 20:39
DX: S39.012A Strain of muscle, fascia and tendon of lower back, initial encounter (principal); X50.0XXA Overexertion from strenuous movement or load, initial encounter; Y92.89 Other specified places as the place of occurrence of the external cause; Y93.89 Activity, other specified; Y99.0 Civilian activity done for income or pay; Z87.891 Personal history of nicotine dependence

== ENCOUNTER 2016-12-10 18:24 | Emergency (ER) | payer OTHER ==
[~2016-12-10] VITALS: Ht 182.9 cm; Wt 116.6 kg
[2016-12-10] MEDS ORDERED: FOLI800C PO (18:43)
[2016-12-10 20:36] VITALS: BP 141/94
--- NOTE | 2016-12-10 22:37 | REP ---
RIGHT FOURTH DIGIT: CLINICAL: Palpable mass and pain predominantly at the metacarpophalangeal joint. TECHNIQUE: AP, lateral, bilateral oblique views of the right fourth digit. FINDINGS: No acute fracture or dislocation. Skeletal structures, joint spaces and surrounding soft tissues are normal. No obvious soft tissue lesion noted. IMPRESSION: Normal right fourth digit radiograph. Unreviewed
== END 2016-12-10 20:58 | disposition home or self-care (01) ==
LOC: M ED 19:54
DX: M65.241 Calcific tendinitis, right hand (principal); Z98.84 Bariatric surgery status; F17.200 Nicotine dependence, unspecified, uncomplicated; Z79.899 Other long term (current) drug therapy

== ENCOUNTER → 2016-12-10 | Outpatient (REF) | payer OTHER ==
[~2016-12-10] MED LIST: FOLI800C PO
[2016-12-10 12:38] LABS: FOLATE 4.9 NG/ML (>5.4)
[2016-12-10 12:43] LABS: ALBUMIN 3.9 GM/DL (3.2-5.2); ALBUMIN/GLOBULIN RATIO 1.44 (1.00-1.93); ALKALINE PHOSPHATASE 128 U/L (45-117); ALT/SGPT 24 U/L (12-78); ANION GAP 6 MEQ/L (8-16); AST/SGOT 25 U/L (15-37); BLOOD UREA NITROGEN 9 MG/DL (7-18); CALCIUM LEVEL 8.6 MG/DL (8.5-10.1); CARBON DIOXIDE LEVEL 32 MEQ/L (21-32); CHLORIDE LEVEL 104 MEQ/L (98-107); CREATININE FOR GFR 0.61 MG/DL (0.70-1.30); GLOMERULAR FILTRATION RATE > 60.0 (>60); GLUCOSE, FASTING 70 MG/DL (70-105); POTASSIUM SERUM 3.9 MEQ/L (3.5-5.1); SODIUM LEVEL 142 MEQ/L (136-145); TOTAL PROTEIN 6.6 GM/DL (6.4-8.2)
== END ==
LOC: M SFHCCLAY 08:01
PROVIDERS: ATTEND Family Medicine
DX: R74.8 Abnormal levels of other serum enzymes (principal); E53.8 Deficiency of other specified B group vitamins

== ENCOUNTER → 2016-12-28 | Outpatient (CLI) | payer OTHER ==
--- NOTE | 2016-12-28 10:52 | REP ---
MRI LUMBAR SPINE WITHOUT CONTRAST: HISTORY: Acute midline low back pain with sciatica. Comparison radiographs are from September 27, 2016. TECHNIQUE: Sagittal and axial T1 and T2-weighted scans are acquired in the usual fashion with and without fat saturation. Sequences include spin echo, turbo spin echo, and STIR imaging sequences. MRI FINDINGS: Lumbar vertebral body heights are preserved. Alignment is normal. There is mild decreased disc space signal intensity at the L5-S1. Disc spaces are otherwise preserved. There is no evidence of spondylolysis or spondylolisthesis. Conus medullaris is normal in position and appearance at the L1 level. Normal caliber aorta is seen. No extra spinal abnormality is seen. Axial and sagittal images at L5-S1 show minimal facet hypertrophy bilaterally. No disc herniation is seen. No neural foraminal narrowing or central canal stenosis is noted. At L4-5, there is minimal diffuse disc bulging. No other abnormality. At the L3-4 level, on the left, there is a 12 mm facet joint associated cyst superior to the L3-4 facet. There is a small quantity of fluid in the right sided facet. No disc herniation, central canal stenosis or neural foraminal narrowing is seen at L3-4. The more proximal disc levels are unremarkable. IMPRESSION: Mild facet hypertrophy at L5-S1 and bilaterally. At L3-4 there is a facet joint associated periarticular cyst in the extra spinal left-sided soft tissues. Signed by Wisam Alejo MD 12/28/2016 12:57 P
== END ==
LOC: M RAD 09:07
PROVIDERS: ATTEND Family Medicine
DX: M54.5 Low back pain (principal)

== ENCOUNTER 2017-05-10 22:03 | Emergency (ER) | payer OTHER ==
[~2017-05-10] VITALS: Ht 182.9 cm; Wt 100.0 kg
[2017-05-10] MEDS ORDERED: ZANA4CAP (22:22)
[2017-05-11] MEDS ORDERED: IBUP80TA PO (06:48)
[2017-05-11 06:57] VITALS: BP 126/94
--- NOTE | 2017-05-11 07:00 | REPUSA ---
Left calf. Indication: Pain and swelling. Technique: Sonographic evaluation with Doppler exam. Findings: Sonographic evaluation demonstrates in partially thrombosed varicose veins in the medial aspect of th e left calf with associated increased soft tissue in echogenicity likely superficial thrombophlebitis . Impression: Superficial thrombophlebitis.
== END 2017-05-11 06:58 | disposition home or self-care (01) ==
LOC: M ED 22:03
DX: I80.02 Phlebitis and thrombophlebitis of superficial vessels of left lower extremity (principal); I83.819 Varicose veins of unspecified lower extremity with pain; M54.9 Dorsalgia, unspecified; Z98.84 Bariatric surgery status; Z90.49 Acquired absence of other specified parts of digestive tract; F17.200 Nicotine dependence, unspecified, uncomplicated; Z79.899 Other long term (current) drug therapy

== ENCOUNTER → 2017-05-13 | Outpatient (CLI) | payer OTHER ==
[~2017-05-13] MED LIST changes: +IBUP80TA PO; +ZANA4CAP
--- NOTE | 2017-05-14 01:28 | REP ---
Clinical: Pain with prior trauma. Technique: AP, lateral, bilateral oblique and sunrise views. Findings: The osseous structures and joint spaces are intact and appear relatively age-appropriate. No overt osteoarthritic degenerative changes are appreciated. There is no evidence for acute fracture or dislocation. No joint effusion is appreciated. Surrounding soft tissues are unremarkable. No subcutaneous emphysema or radiodense foreign body. Impression: Normal, age appropriate radiographic examination. No acute fracture or dislocation.
== END ==
LOC: M CLY 15:00
PROVIDERS: ATTEND Family Medicine
DX: M25.561 Pain in right knee (principal)

== ENCOUNTER → 2017-12-23 | Outpatient (CLI) | payer OTHER | LOC: M CLY 08:43 | DX: M25.571 Pain in right ankle and joints of right foot (principal); M79.604 Pain in right leg | CPT/HCPCS: 73610 ==

== ENCOUNTER 2017-12-30 22:55 | Emergency (ER) | payer OTHER ==
[2017-12-30] MEDS ORDERED: ONDANSETRON 4MG/2ML VIAL (J2405) As Ordered (23:11)
[2017-12-30] MEDS: MORPHINE 10 MG/ML 1ML VIAL (J2270) IV (23:19)
[2017-12-30] MEDS: ONDANSETRON 4MG/2ML VIAL (J2405) IV (23:22)
[2017-12-30] MEDS ORDERED: PROPOFOL 1,000 MG/100 ML VIAL As Ordered (23:51)
[2017-12-31] MEDS: PROPOFOL 200 MG/20 ML VIAL IV ×2 (00:17→00:30)
[2017-12-31] MEDS: NORCO 5/325MG TABLET (BULK FOR ED) PO (01:01)
[2017-12-31] MEDS: KETOROLAC 30 MG/ML VIAL (J1885) IV (01:10)
== END 2017-12-31 01:35 | disposition home or self-care (01) ==
LOC: M ED 22:55
DX: S52.532A Colles' fracture of left radius, initial encounter for closed fracture (principal); W11.XXXA Fall on and from ladder, initial encounter; Y92.009 Unspecified place in unspecified non-institutional (private) residence as the place of occurrence of the external cause
CPT/HCPCS: J2405

== ENCOUNTER 2017-12-31 20:47 | Emergency (ER) | payer OTHER ==
[2017-12-31] MEDS: MORPHINE 4 MG/ML 1ML VIAL/SYRINGE (J2270) IV (22:00)
== END 2017-12-31 23:26 | disposition home or self-care (01) ==
LOC: M ED 20:47
DX: S52.532A Colles' fracture of left radius, initial encounter for closed fracture (principal); X50.0XXA Overexertion from strenuous movement or load, initial encounter; Y92.89 Other specified places as the place of occurrence of the external cause; Y93.K1 Activity, walking an animal
CPT/HCPCS: J2270

== ENCOUNTER 2018-03-29 15:09 | Emergency (ER) | payer OTHER | END 2018-03-29 15:52 | disposition home or self-care (01) | LOC: M ED 15:09 | DX: R21 Rash and other nonspecific skin eruption (principal); B02.9 Zoster without complications | CPT/HCPCS: 99282 ==

== ENCOUNTER 2018-10-16 14:18 | Emergency (ER) | payer OTHER ==
[~2018-10-16] VITALS: Ht 182.9 cm; Wt 125.0 kg
[2018-10-16 14:18] VITALS: BP 147/97
[~2018-10-16 14:18] MED LIST changes: +NORCOTAB PO; +VALA1TAB2 PO
--- NOTE | 2018-10-16 14:54 | REP ---
Clinical: Trauma/fall with left hip pain. Technique: Frontal view of the pelvis with neutral and frog lateral views of the left hip. Findings: Osseous structures and joint spaces are intact and normal. No acute fracture or dislocation. No significant degenerative or congenital abnormalities are appreciated. Surrounding soft tissues are unremarkable. Impression: Normal pelvis and left hip series. Electronically Signed by Natanael Mosher MD 10/16/2018 02:46 P
== END 2018-10-16 19:10 | disposition left against medical advice (07) ==
LOC: M ED 14:18
DX: Z53.21 Procedure and treatment not carried out due to patient leaving prior to being seen by health care provider (principal)

== ENCOUNTER → 2019-05-11 | Outpatient (CLI) | payer OTHER ==
[~2019-05-11] MED LIST changes: +HYDR-3715 PO; -NORCOTAB PO
--- NOTE | 2019-05-12 01:50 | REP ---
Clinical: Trauma/injury . Technique: AP, lateral, bilateral oblique, and coned-down views. Findings: Alignment and lordosis is maintained. The vertebral bodies including transverse process and spinous processes are intact and normal. There is no evidence for acute fracture / compression injury or subluxation. No significant degenerative change is noted. Impression: Normal, age-appropriate lumbosacral spine radiograph series. No acute fracture / compression injury or subluxation noted. Electronically Signed by Natanael Mosher MD 05/12/2019 01:41 A
== END ==
LOC: M CLY 14:18
PROVIDERS: ATTEND Nurse Practitioner Family
DX: S34.109D Unspecified injury to unspecified level of lumbar spinal cord, subsequent encounter (principal); X58.XXXD Exposure to other specified factors, subsequent encounter

== ENCOUNTER → 2019-06-17 | Outpatient (REF) | payer OTHER | LOC: M SMT 13:15 | PROVIDERS: ATTEND Urology | DX: Z30.2 Encounter for sterilization (principal) ==

== ENCOUNTER 2020-11-17 11:00 | Emergency (ER) | payer OTHER ==
[~2020-11-17] VITALS: Ht 182.9 cm; Wt 124.3 kg
[~2020-11-17 11:00] MED LIST changes: -VALA1TAB2 PO; +VALA1TAB5 PO
[2020-11-17] MEDS ORDERED: FLUORESCEIN OPHTH 1 MG STRIP XX ONE (11:10)
[2020-11-17] MEDS ORDERED: PROPARACAINE 0.5% OPHTH SOL 15ML XX ONE (11:10)
[2020-11-17 14:53] VITALS: BP 134/89
[2020-11-17] MEDS ORDERED: KETOROLAC TROMETHAMINE 10 MG TAB PO ONE (15:00)
[2020-11-17] MEDS ORDERED: OFLO3OPSO OP (15:16)
== END 2020-11-17 15:38 | disposition home or self-care (01) ==
LOC: M ED 11:00
DX: T15.01XA Foreign body in cornea, right eye, initial encounter (principal); W89.0XXA Exposure to welding light (arc), initial encounter; Y92.019 Unspecified place in single-family (private) house as the place of occurrence of the external cause; Y93.9 Activity, unspecified; Y99.9 Unspecified external cause status

== ENCOUNTER 2021-10-10 15:50 | Emergency (ER) | payer OTHER ==
[~2021-10-10] VITALS: Ht 182.9 cm; Wt 119.4 kg
[~2021-10-10 15:50] MED LIST changes: +OFLO3OPSO OP
[2021-10-10 18:15] VITALS: BP 122/79
== END 2021-10-10 18:30 | disposition home or self-care (01) ==
LOC: M ED 15:50
DX: S63.92XA Sprain of unspecified part of left wrist and hand, initial encounter (principal); W01.0XXA Fall on same level from slipping, tripping and stumbling without subsequent striking against object, initial encounter; W22.8XXA Striking against or struck by other objects, initial encounter; Y92.009 Unspecified place in unspecified non-institutional (private) residence as the place of occurrence of the external cause; Y93.9 Activity, unspecified; Y99.9 Unspecified external cause status

== ENCOUNTER → 2022-03-14 | Outpatient (CLI) | payer OTHER | LOC: M CLY 09:08 | PROVIDERS: ATTEND Physician Assistant | DX: S99.912A Unspecified injury of left ankle, initial encounter (principal); M79.645 Pain in left finger(s) ==

== ENCOUNTER → 2022-09-20 | Outpatient (CLI) | payer OTHER | LOC: M RAD 07:39 | PROVIDERS: ATTEND Family Medicine | DX: M51.06 Intervertebral disc disorders with myelopathy, lumbar region (principal); M46.96 Unspecified inflammatory spondylopathy, lumbar region ==

== ENCOUNTER 2023-01-19 11:13 | Emergency (ER) | payer OTHER ==
[~2023-01-19] VITALS: Ht 182.9 cm; Wt 122.7 kg
[~2023-01-19 11:13] MED LIST changes: -OFLO3OPSO OP; +OFLO5DRO OP
[2023-01-19 13:53] VITALS: BP 141/98
== END 2023-01-19 14:00 | disposition home or self-care (01) ==
LOC: M ED 11:13
DX: S00.03XA Contusion of scalp, initial encounter (principal); V49.40XA Driver injured in collision with unspecified motor vehicles in traffic accident, initial encounter; M54.50 Low back pain, unspecified; Z98.84 Bariatric surgery status

== ENCOUNTER 2023-04-24 09:30 | Emergency (ER) | payer OTHER ==
[~2023-04-24] VITALS: Ht 182.9 cm; Wt 125.0 kg
[2023-04-24 09:31] VITALS: BP 134/99; TEMP 98.3; O2SAT 100
[2023-04-24] MEDS ORDERED: PRED20TA PO (12:34)
== END 2023-04-24 12:45 | disposition home or self-care (01) ==
LOC: M ED 09:30
DX: S63.617A Unspecified sprain of left little finger, initial encounter (principal); S63.615A Unspecified sprain of left ring finger, initial encounter; W23.0XXA Caught, crushed, jammed, or pinched between moving objects, initial encounter; M54.50 Low back pain, unspecified; Z98.84 Bariatric surgery status; Z79.52 Long term (current) use of systemic steroids

== ENCOUNTER 2023-05-19 17:26 | Emergency (ER) | payer OTHER ==
[~2023-05-19 17:26] MED LIST changes: +PRED20TA PO
[2023-05-19 17:40] VITALS: TEMP 97
[2023-05-19 18:04] LABS: BASO % 0.6 % (0.0-1.0); EOS # 0.1 10^3/uL (0.0-0.5); EOS % 1.5 % (0.0-3.0); HEMATOCRIT 44.3 % (42.0-52.0); HEMOGLOBIN 15.8 g/dl (13.5-17.5); LYMPH # 2.9 10^3/uL (1.5-5.0); LYMPH % 43.4 % (24.0-44.0); MEAN CORPUSCULAR HEMOGLOBIN 30.4 pg (27.0-33.0); MEAN CORPUSCULAR HGB CONC 35.7 g/dl (32.0-36.5); MEAN CORPUSCULAR VOLUME 85.2 fl (80.0-96.0); MONO # 0.7 10^3/uL (0.0-0.8); NEUTROPHILS % 44.4 % (36.0-66.0); PLATELET COUNT, AUTOMATED 256 10^3/uL (150-450); WHITE BLOOD COUNT 6.7 10^3/uL (4.0-10.0)
[2023-05-19 18:17] LABS: ERYTHROCYTE SEDIMENTATION RATE 6 mm/hr (0-15)
[2023-05-19] MEDS ORDERED: NS 1,000 ML IV ONE ×2 (18:25→19:45)
[2023-05-19 18:35] LABS: LIPASE 35 U/L (12-53)
[2023-05-19 18:36] LABS: C REACTIVE PROTEIN QUANTITATIV < 0.40 MG/DL (<1.0); CK-MB VALUE MASS < 1.0 NG/ML (<3.6)
[2023-05-19 18:38] LABS: ALKALINE PHOSPHATASE 137 U/L (46-116); ALT/SGPT 21 U/L (7.0-40); AST/SGOT 27 U/L (<34); BILIRUBIN,DIRECT 0.2 MG/DL (<0.4); BILIRUBIN,TOTAL 0.7 MG/DL (0.3-1.2); BLOOD UREA NITROGEN 10 MG/DL (9-23); CARBON DIOXIDE LEVEL 25 MMOL/L (20-31); CHLORIDE LEVEL 107 MMOL/L (98-107); CREATININE FOR GFR 0.81 MG/DL (0.70-1.30); GLOMERULAR FILTRATION RATE > 60.0 (>60); GLUCOSE, FASTING 125 MG/DL (60-100); POTASSIUM SERUM 3.9 MMOL/L (3.5-5.1); RSV AMPLIFICATION NEGATIVE (NEGATIVE); SODIUM LEVEL 140 MMOL/L (136-145); TOTAL PROTEIN 6.8 G/DL (5.7-8.2)
[2023-05-19 18:39] LABS: THYROID STIMULATING HORMONE 2.374 uIU/ML (0.55-4.78)
[2023-05-19 18:40] LABS: ETHYL ALCOHOL (ETHANOL) < 0.003 % (0.000-0.010)
[2023-05-19 18:42] LABS: ACETAMINOPHEN LEVEL < 2.0 UG/ML (10.0-20.0); SALICYLATE LEVEL < 3.0 MG/DL (<30)
[2023-05-19 18:43] LABS: CPK CREATINE PHOSPHOKINASE 92 U/L (46-171); MB/CK RELATIVE INDEX 1.08 (< OR =4)
[2023-05-19 19:15] LABS: AMPHETAMINES LEVEL URINE NEGATIVE (NEGATIVE); BARBITURATES URINE NEGATIVE (NEGATIVE)
[2023-05-19 19:16] LABS: BENZODIAZEPINES URINE NEGATIVE (NEGATIVE); CANNABINOIDS URINE POSITIVE (NEGATIVE); COCAINE METABOLITE URINE NEGATIVE (NEGATIVE); METHADONE URINE NEGATIVE (NEGATIVE); OPIATES URINE NEGATIVE (NEGATIVE); PHENCYCLIDINE URINE NEGATIVE (NEGATIVE)
[2023-05-19 19:27] LABS: CK-MB VALUE MASS < 1.0 NG/ML (<3.6)
[2023-05-19 19:28] LABS: CPK CREATINE PHOSPHOKINASE 88 U/L (46-171); MB/CK RELATIVE INDEX 1.13 (< OR =4)
[2023-05-20 01:15] VITALS: BP 129/78; O2SAT 96
== END 2023-05-20 01:44 | disposition home or self-care (01) ==
LOC: M ED 17:26 → EDBD 17:26 → M ED 05-20 01:44
DX: R07.9 Chest pain, unspecified (principal); F12.129 Cannabis abuse with intoxication, unspecified; R53.83 Other fatigue; Z79.52 Long term (current) use of systemic steroids

== ENCOUNTER → 2023-10-07 | Outpatient (CLI) | payer OTHER | LOC: M CLY 14:28 | PROVIDERS: ATTEND Family Medicine | DX: M25.561 Pain in right knee (principal); M25.562 Pain in left knee; Z53.9 Procedure and treatment not carried out, unspecified reason ==

== ENCOUNTER 2023-10-17 21:33 | Emergency (ER) | payer OTHER ==
[~2023-10-17] VITALS: Ht 182.9 cm; Wt 120.4 kg
[2023-10-17 22:48] LABS: BASO % 0.7 % (0.0-1.0); HEMOGLOBIN 17.6 g/dl (13.5-17.5); LYMPH % 47.4 % (24.0-44.0); MEAN CORPUSCULAR HEMOGLOBIN 30.2 pg (27.0-33.0); MEAN CORPUSCULAR HGB CONC 35.9 g/dl (32.0-36.5); MEAN CORPUSCULAR VOLUME 84.2 fl (80.0-96.0); MONO # 0.7 10^3/uL (0.0-0.8); MONO % 16.6 % (2.0-8.0); NEUTROPHILS # 1.5 10^3/uL (1.5-8.5); NEUTROPHILS % 35.3 % (36.0-66.0); PLATELET COUNT, AUTOMATED 215 10^3/uL (150-450); RED BLOOD COUNT 5.82 10^6/uL (4.30-6.10); WHITE BLOOD COUNT 4.3 10^3/uL (4.0-10.0)
[2023-10-17 23:16] LABS: LIPASE 44 U/L (12-53)
[2023-10-17 23:18] LABS: ALBUMIN 4.3 G/DL (3.2-5.2); ALKALINE PHOSPHATASE 120 U/L (46-116); ALT/SGPT 27 U/L (7.0-40); AST/SGOT 36 U/L (<34); BILIRUBIN,DIRECT 0.4 MG/DL (<0.4); BILIRUBIN,TOTAL 0.8 MG/DL (0.3-1.2); BLOOD UREA NITROGEN 13 MG/DL (9-23); CARBON DIOXIDE LEVEL 26 MMOL/L (20-31); CHLORIDE LEVEL 103 MMOL/L (98-107); GLOMERULAR FILTRATION RATE > 60.0 (>60); GLUCOSE, FASTING 89 MG/DL (60-100); POTASSIUM SERUM 4.3 MMOL/L (3.5-5.1); SODIUM LEVEL 134 MMOL/L (136-145); TOTAL PROTEIN 7.6 G/DL (5.7-8.2)
[2023-10-17 23:25] LABS: RSV AMPLIFICATION NEGATIVE (NEGATIVE)
[2023-10-18 00:32] VITALS: BP 133/95; TEMP 97.8; O2SAT 100
== END 2023-10-18 03:17 | disposition left against medical advice (07) ==
LOC: M ED 21:33
DX: Z53.21 Procedure and treatment not carried out due to patient leaving prior to being seen by health care provider (principal)

== ENCOUNTER → 2023-11-11 | Outpatient (CLI) | payer OTHER | LOC: M CLY 08:38 | PROVIDERS: ATTEND Family Medicine | DX: M25.561 Pain in right knee (principal); M25.562 Pain in left knee ==

== ENCOUNTER → 2023-12-03 | Outpatient (REF) | payer OTHER ==
[2023-12-03 13:05] LABS: ALKALINE PHOSPHATASE 141 U/L (46-116); ALT/SGPT 28 U/L (7.0-40); AST/SGOT 28 U/L (<34); BILIRUBIN,TOTAL 0.8 MG/DL (0.3-1.2); BLOOD UREA NITROGEN 10 MG/DL (9-23); CALCIUM LEVEL 9.5 MG/DL (8.5-10.1); CARBON DIOXIDE LEVEL 32 MMOL/L (20-31); CHLORIDE LEVEL 104 MMOL/L (98-107); CHOLESTEROL LEVEL 140 MG/DL (<200); CHOLESTEROL RISK RATIO 3.73 (<5); CREATININE FOR GFR 0.75 MG/DL (0.70-1.30); GLOMERULAR FILTRATION RATE > 60.0 (>60); GLUCOSE, FASTING 85 MG/DL (60-100); HDL CHOLESTEROL 37.5 MG/DL (>40); LDL CHOLESTEROL 80.1 MG/DL (<100); NON-HDL-C 102.5 MG/DL; POTASSIUM SERUM 4.1 MMOL/L (3.5-5.1); SODIUM LEVEL 137 MMOL/L (136-145); TOTAL PROTEIN 7.1 G/DL (5.7-8.2); TRIGLYCERIDES LEVEL 112 MG/DL (<150)
== END ==
LOC: M SFHCCLAY 07:58
PROVIDERS: ATTEND Family Medicine
DX: R76.8 Other specified abnormal immunological findings in serum (principal); M25.561 Pain in right knee; M25.562 Pain in left knee; Z13.220 Encounter for screening for lipoid disorders

== ENCOUNTER → 2024-12-08 | Outpatient (CLI) | payer OTHER | LOC: M CLY 08:14 | PROVIDERS: ATTEND Family Medicine | DX: M25.512 Pain in left shoulder (principal); Z53.9 Procedure and treatment not carried out, unspecified reason ==

== ENCOUNTER 2025-03-14 16:02 | Emergency (ER) | payer OTHER ==
[~2025-03-14] VITALS: Ht 182.9 cm; Wt 123.1 kg
[2025-03-14 18:52] VITALS: BP 135/98; TEMP 97.1; O2SAT 98
== END 2025-03-14 18:55 | disposition home or self-care (01) ==
LOC: M ED 16:02
DX: S60.112A Contusion of left thumb with damage to nail, initial encounter (principal); W23.0XXA Caught, crushed, jammed, or pinched between moving objects, initial encounter; Y92.9 Unspecified place or not applicable; Y93.89 Activity, other specified; Y99.9 Unspecified external cause status

== ENCOUNTER → 2025-06-10 | Outpatient (REF) | payer MEDICAID, OTHER ==
[2025-06-10 12:25] LABS: PLATELET COUNT, AUTOMATED 247 10^3/uL (150-450)
[2025-06-10 12:29] LABS: ALT/SGPT 24 U/L (7.0-40); AST/SGOT 23 U/L (<34); CALCIUM LEVEL 9.4 MG/DL (8.5-10.1); CARBON DIOXIDE LEVEL 29 MMOL/L (20-31); CHLORIDE LEVEL 106 MMOL/L (98-107); CREATININE FOR GFR 0.79 MG/DL (0.70-1.30); GLOMERULAR FILTRATION RATE > 90.0 (>60); IRON (FE) 63 UG/DL (65-175); POTASSIUM SERUM 4.3 MMOL/L (3.5-5.1); SODIUM LEVEL 143 MMOL/L (136-145)
== END ==
LOC: M SFHCCLAY 07:26
PROVIDERS: ATTEND Family Medicine
DX: R03.0 Elevated blood-pressure reading, without diagnosis of hypertension (principal); R76.89 Other specified abnormal immunological findings in serum; Z86.2 Personal history of diseases of the blood and blood-forming organs and certain disorders involving the immune mechanism

== ENCOUNTER 2025-07-25 13:14 | Emergency (ER) | payer OTHER ==
[~2025-07-25] VITALS: Ht 182.9 cm; Wt 119.3 kg
[2025-07-25] MEDS: LIDOCAINE 1% MDV 20 ML VIAL SC ONE (15:25)
[2025-07-25 16:18] VITALS: BP 138/97; TEMP 97.8; O2SAT 97
== END 2025-07-25 16:27 | disposition home or self-care (01) ==
LOC: M ED 13:14
DX: S61.112A Laceration without foreign body of left thumb with damage to nail, initial encounter (principal); W26.0XXA Contact with knife, initial encounter; F10.10 Alcohol abuse, uncomplicated; Y92.009 Unspecified place in unspecified non-institutional (private) residence as the place of occurrence of the external cause; Y93.89 Activity, other specified; Y99.9 Unspecified external cause status